=== PATIENT | male | born 2005 | race Caucasian/White ===

== ENCOUNTER 2023-10-29 20:46 | Emergency (ER) | payer OTHER ==
[2023-10-29] MEDS: Amoxicillin/Clavulanate K 875-125 MG Tab PO ONE (22:48)
== END 2023-10-29 22:58 | disposition home or self-care (01) ==
LOC: FB.ED 20:46
DX: J20.9 Acute bronchitis, unspecified (principal); J01.90 Acute sinusitis, unspecified
CPT/HCPCS: 36415; 84484; 85379; 93005; 93010; 99283; A9270-GY